=== PATIENT | female | born 1955 | race Caucasian/White ===

== ENCOUNTER → 2016-06-22 | Outpatient (CLI) | payer OTHER ==
[~2016-06-22] MED LIST: /AUGM875TA OR; /CELE20CA OR; COLA100C2 OR; No Historical Meds; VICODINES TAB OR
== END ==
LOC: M ADAMS 17:36
PROVIDERS: ATTEND Physician Assistant Medical
DX: Z02.89 Encounter for other administrative examinations (principal)

== ENCOUNTER 2021-04-15 17:37 | Emergency (ER) | payer OTHER, SELFPAY ==
[~2021-04-15 17:37] MED LIST changes: -/CELE20CA OR; +CELE1CAP4 OR
[2021-04-15 18:32] VITALS: BP 145/78
--- NOTE | 2021-04-15 18:33 | REP ---
INDICATION: fall/injury COMPARISON: None. TECHNIQUE: Internal rotation, external rotation, and Y view. FINDINGS: Acromioclavicular and glenohumeral joints are intact and there is no evidence for acute fracture or dislocation. Generalized age-related changes noted. No periarticular calcifications or loose bodies. IMPRESSION: Age-appropriate examination. No acute fracture or dislocation. <Electronically signed by Evans Nava > 04/15/21 [id number]
== END 2021-04-15 20:06 | disposition home or self-care (01) ==
LOC: EDBD 17:37 → M ED 17:37
DX: S46.912A Strain of unspecified muscle, fascia and tendon at shoulder and upper arm level, left arm, initial encounter (principal); W01.0XXA Fall on same level from slipping, tripping and stumbling without subsequent striking against object, initial encounter; Y92.89 Other specified places as the place of occurrence of the external cause; Y93.9 Activity, unspecified; Y99.9 Unspecified external cause status; Z79.899 Other long term (current) drug therapy; Z88.1 Allergy status to other antibiotic agents